=== PATIENT | male | born 1950 | race Caucasian/White ===

== ENCOUNTER 2017-06-07 20:41 | Emergency (ER) | payer MEDICARE, OTHER ==
--- NOTE | 2017-06-07 21:47 | RAD ---
LEFT RIB TWO VIEWS: History: Injury. Left rib pain. FINDINGS/IMPRESSION: No definite left sided rib fracture is seen. POS: [facility]
== END 2017-06-07 22:00 | disposition home or self-care (01) ==
LOC: SCSER 20:41
DX: S20.212A Contusion of left front wall of thorax, initial encounter (principal); E78.5 Hyperlipidemia, unspecified; W22.8XXA Striking against or struck by other objects, initial encounter